=== PATIENT | female | born 1955 | race African-American/Black ===

== ENCOUNTER 2018-04-03 10:17 | Inpatient (IN) ==
[2018-04-03] MEDS ORDERED: SODIUM CHLORIDE 0.9% 1,000 ML IV STA (10:33)
[2018-04-03 11:46] LABS: Basophils % 0.2 % (0.0-0.8); Hematocrit 39.8 VOL% (35.7-47.0); Hemoglobin 12.9 GM/DL (12.0-16.0); Immature Granulocytes % 0.5 %; Immature Granulocytes Absolute 0.09 #; Lymphocytes # 1.9 10*3/uL (1.4-4.0); Lymphocytes % 10.3 % (21.3-54.2); Mean Corpuscular HGB Conc 32.4 GM/DL (32-36); Mean Corpuscular Hemoglobin 30 PG (27-34); Mean Corpuscular Volume 92.6 FL (87-102); Mean Platelet Volume 9.5 FL (9.6-12.0); Monocytes # 1.1 10*3/uL (0.11-0.8); Monocytes % 5.7 % (1.7-12.7); Neutrophils # 15.5 10*3/uL (1.4-7.4); Neutrophils % 83.3 % (38.7-73.9); Platelet Count 495 T/CUMM (130-400); Red Cell Distribution Width 14.6 % (9.3-17.3); White Blood Count 18.6 T/CUMM (4-12)
[2018-04-03 11:54] LABS: PT Patient Result 10.1 SECS
[2018-04-03 12:09] LABS: Apearance,Urine Clear (Clear); Bilirubin,Urine Negative (Negative); Blood, Urine Negative (Negative); Glucose,Urine (UA) Negative (Negative); Ketones,Urine 25 mg/dL (Negative); Nitrite,Urine Negative (Negative); Protein,Urine Negative; Urine Color Yellow (Yellow); Urine Specific Gravity 1.015 (1.001-1.035); Urine Urobilinogen 0.2 EU/DL (0.2-1.0)
[2018-04-03 12:12] LABS: Albumin 3.1 G/DL (3.4-5.0); Bilirubin,Total 0.4 MG/DL (0.2-1.0); Calcium 9.2 MG/DL (8.5-10.1); Total Protein 8.4 G/DL (6.4-8.3)
[2018-04-03 12:13] LABS: Osmolality,Calculated 319.1 MOS/KG (273-304); Potassium 4.3 MMOL/L (3.5-5.1)
[2018-04-03 12:21] LABS: Barbiturates Screen,Urine Negative (Negative); Benzodiazepines Screen,Urine Negative (Negative); Cannabinoid Screen,Urine Positive (Negative); Opiate Screen,Urine Negative (Negative); Phencyclidine Screen,Urine Negative (Negative)
[2018-04-03] MEDS ORDERED: ONDANSETRON 4 MG/2 ML VIAL IV PRN (13:51)
[2018-04-03] MEDS ORDERED: ACETAMINOPHEN 325 MG TABLET PO PRN (13:51)
[2018-04-03] MEDS ORDERED: LABETALOL 20 MG/4 ML SYRINGE IV PRN (13:53)
[2018-04-03] MEDS ORDERED: GLUCAGON 1 MG VIAL IM PRN (13:56)
[2018-04-03] MEDS ORDERED: DEXTROSE 50% 25 GM/50 ML VIAL IV PRN (13:56)
[2018-04-03] MEDS ORDERED: hydrALAZINE 20 MG/1 ML VIAL IV PRN (13:58)
[2018-04-03 14:22] LABS: Risk Ratio 2.03; Thyroid Stimulating Hormone 0.385 uIU/ml (0.358-3.74); VLDL CHOLESTEROL 30.6 MG/DL
[2018-04-03] MEDS: cefTRIAXone 1,000 MG in SYRINGE 1 EACH IV SCH (17:26)
[2018-04-03] MEDS: SODIUM CHLORIDE 0.45% 1,000 ML IV SCH (17:27)
[2018-04-03] MEDS: ASPIRIN 325 MG TABLET PO SCH (17:27)
[2018-04-03] MEDS: INSULIN LISPRO 100 UNIT/ML SUBCUT SCH ×2 (17:28→22:04)
[2018-04-03 21:24] LABS: Apearance,Urine CLOUDY (Clear); Bilirubin,Urine Negative (Negative); Blood, Urine Moderate mg/dL (Negative); Glucose,Urine (UA) Negative (Negative); Hyaline Casts,Urine 3 /LPF (0-3); Ketones,Urine 20 mg/dL (Negative); Mucus,Urine Occasional /LPF (Occasional); Nitrite,Urine Negative (Negative); Protein,Urine 30 MG/DL; RBC,Urine 27 /HPF (0-4); Squamous Epithelial Cell,Urine Occasional /HPF (0-10); Urine Color Yellow (Yellow); Urine Specific Gravity 1.016 (1.001-1.035); Urine Urobilinogen < 2.0 EU/DL (0.2-1.0); WBC,Urine 267 /HPF (0-6)
[2018-04-03] MEDS: TOLTERODINE LA 2 MG CAPSULE PO SCH (22:00)
[2018-04-03] MEDS: ENOXAPARIN 30 MG/0.3 ML SYRINGE SUBCUT SCH (22:00)
[2018-04-03] MEDS: ROSUVASTATIN 20 MG TABLET PO SCH (22:01)
[2018-04-04] MEDS: SODIUM CHLORIDE 0.45% 1,000 ML IV SCH ×2 (04:04→11:36)
[2018-04-04 07:52] LABS: Basophils # 0.1 10*3/uL (0.0-0.2); Basophils % 0.3 % (0.0-0.8); Eosinophils # 0.1 10*3/uL (0.0-0.87); Eosinophils % 0.6 % (0.00-10.9); Hematocrit 32.5 VOL% (35.7-47.0); Immature Granulocytes % 0.3 %; Immature Granulocytes Absolute 0.04 #; Lymphocytes # 2.3 10*3/uL (1.4-4.0); Mean Corpuscular HGB Conc 32.6 GM/DL (32-36); Mean Corpuscular Hemoglobin 30 PG (27-34); Mean Corpuscular Volume 92.3 FL (87-102); Mean Platelet Volume 9.5 FL (9.6-12.0); Monocytes # 0.9 10*3/uL (0.11-0.8); Monocytes % 5.9 % (1.7-12.7); Neutrophils % 76.9 % (38.7-73.9); Platelet Count 427 T/CUMM (130-400); Red Blood Count 3.52 MC/CUMM (3.8-5.5); Red Cell Distribution Width 14.4 % (9.3-17.3); White Blood Count 14.4 T/CUMM (4-12)
[2018-04-04 07:55] LABS: Hemoglobin 10.6 GM/DL (12.0-16.0)
[2018-04-04 08:01] LABS: Calcium 9.2 MG/DL (8.5-10.1); Osmolality,Calculated 325.4 MOS/KG (273-304); Potassium 3.9 MMOL/L (3.5-5.1)
[2018-04-04] MEDS: INSULIN LISPRO 100 UNIT/ML SUBCUT SCH ×4 (10:09→20:05)
[2018-04-04] MEDS: ASPIRIN 325 MG TABLET PO SCH (10:10)
[2018-04-04] MEDS: amLODIPine 10 MG TABLET PO SCH (10:10)
[2018-04-04] MEDS: cefTRIAXone 1,000 MG in SYRINGE 1 EACH IV SCH (16:10)
[2018-04-04] MEDS: DEXTROSE 5% 1,000 ML IV SCH (16:14)
[2018-04-04] MEDS: ROSUVASTATIN 20 MG TABLET PO SCH (20:05)
[2018-04-04] MEDS: TOLTERODINE LA 2 MG CAPSULE PO SCH (20:05)
[2018-04-04] MEDS: ENOXAPARIN 30 MG/0.3 ML SYRINGE SUBCUT SCH (20:05)
[2018-04-05 06:40] LABS: Basophils % 0.3 % (0.0-0.8); Eosinophils # 0.4 10*3/uL (0.0-0.87); Eosinophils % 2.8 % (0.00-10.9); Hematocrit 31.2 VOL% (35.7-47.0); Hemoglobin 10.1 GM/DL (12.0-16.0); Immature Granulocytes % 0.5 %; Immature Granulocytes Absolute 0.07 #; Lymphocytes # 2.5 10*3/uL (1.4-4.0); Lymphocytes % 19.1 % (21.3-54.2); Mean Corpuscular HGB Conc 32.4 GM/DL (32-36); Mean Corpuscular Hemoglobin 30 PG (27-34); Mean Corpuscular Volume 91.5 FL (87-102); Mean Platelet Volume 9.5 FL (9.6-12.0); Monocytes # 0.7 10*3/uL (0.11-0.8); Monocytes % 5.5 % (1.7-12.7); Neutrophils # 9.5 10*3/uL (1.4-7.4); Neutrophils % 71.8 % (38.7-73.9); Platelet Count 395 T/CUMM (130-400); Red Blood Count 3.41 MC/CUMM (3.8-5.5); White Blood Count 13.2 T/CUMM (4-12)
[2018-04-05 06:56] LABS: Calcium 8.6 MG/DL (8.5-10.1); Osmolality,Calculated 296.8 MOS/KG (273-304); Potassium 3.9 MMOL/L (3.5-5.1)
[2018-04-05] MEDS: INSULIN LISPRO 100 UNIT/ML SUBCUT SCH ×4 (09:02→20:24)
[2018-04-05] MEDS: amLODIPine 10 MG TABLET PO SCH (09:03)
[2018-04-05] MEDS: ASPIRIN 325 MG TABLET PO SCH (09:03)
[2018-04-05] MEDS: cefTRIAXone 1,000 MG in SYRINGE 1 EACH IV SCH (15:01)
[2018-04-05] MEDS: DEXTROSE 5% 1,000 ML IV SCH (19:57)
[2018-04-05] MEDS: ROSUVASTATIN 20 MG TABLET PO SCH (20:06)
[2018-04-05] MEDS: TOLTERODINE LA 2 MG CAPSULE PO SCH (20:06)
[2018-04-05] MEDS: levETIRAcetam 500 MG TABLET PO SCH (20:06)
[2018-04-05] MEDS: ENOXAPARIN 30 MG/0.3 ML SYRINGE SUBCUT SCH (20:08)
[2018-04-06] MEDS: DEXTROSE 5% 1,000 ML IV SCH ×2 (01:33→11:53)
[2018-04-06 06:35] LABS: Basophils # 0.1 10*3/uL (0.0-0.2); Basophils % 0.4 % (0.0-0.8); Eosinophils # 0.3 10*3/uL (0.0-0.87); Eosinophils % 2.2 % (0.00-10.9); Hematocrit 32.1 VOL% (35.7-47.0); Hemoglobin 10.5 GM/DL (12.0-16.0); Immature Granulocytes % 0.5 %; Immature Granulocytes Absolute 0.07 #; Lymphocytes # 2.4 10*3/uL (1.4-4.0); Lymphocytes % 16.4 % (21.3-54.2); Mean Corpuscular HGB Conc 32.7 GM/DL (32-36); Mean Corpuscular Hemoglobin 30 PG (27-34); Mean Corpuscular Volume 90.4 FL (87-102); Mean Platelet Volume 10.1 FL (9.6-12.0); Monocytes # 0.9 10*3/uL (0.11-0.8); Monocytes % 6.3 % (1.7-12.7); Neutrophils # 10.7 10*3/uL (1.4-7.4); Neutrophils % 74.2 % (38.7-73.9); Platelet Count 428 T/CUMM (130-400); Red Blood Count 3.55 MC/CUMM (3.8-5.5); Red Cell Distribution Width 13.5 % (9.3-17.3); White Blood Count 14.5 T/CUMM (4-12)
[2018-04-06 06:35] LABS: Calcium 8.9 MG/DL (8.5-10.1); Osmolality,Calculated 294.8 MOS/KG (273-304); Potassium 3.9 MMOL/L (3.5-5.1)
[2018-04-06] MEDS ORDERED: LIDOCAINE 1%/EPI INJ 20 ML VIAL ONE (08:15)
[2018-04-06] MEDS ORDERED: BUPIVACAINE 0.25% /EPI 10 ML VIAL ONE (08:15)
[2018-04-06] MEDS ORDERED: ONDANSETRON 4 MG/2 ML VIAL ONE (09:42)
[2018-04-06] MEDS ORDERED: SEVOFLURANE 1 UNIT/15 MINUTE INH ONE (09:42)
[2018-04-06] MEDS ORDERED: PROPOFOL 200 MG/20 ML VIAL IV ONE (09:42)
[2018-04-06] MEDS ORDERED: fentaNYL 100 MCG/2 ML VIAL ONE (09:42)
[2018-04-06] MEDS ORDERED: PHENYLEPHRINE 1 MG/10 ML SYRINGE IV ONE (09:43)
[2018-04-06] MEDS: INSULIN LISPRO 100 UNIT/ML SUBCUT SCH ×4 (10:23→22:03)
[2018-04-06] MEDS: levETIRAcetam 500 MG TABLET PO SCH ×2 (11:13→20:39)
[2018-04-06] MEDS: amLODIPine 10 MG TABLET PO SCH (11:13)
[2018-04-06] MEDS: PANTOPRAZOLE 40 MG VIAL IV SCH (11:13)
[2018-04-06] MEDS ORDERED: TUBERCULIN SKIN TEST 0.1 ML SYRINGE INTRADERM ONE (14:31)
[2018-04-06 15:33] LABS: Glucose,CSF 117 MG/DL (40-70)
[2018-04-06] MEDS: cefTRIAXone 1,000 MG in SYRINGE 1 EACH IV SCH (16:22)
[2018-04-06 16:42] LABS: Lymphocytes,CSF 80 %; Monocytes,CSF 20 %; Red Blood Cell,CSF 3 C/CUMM; White Blood Cell,CSF 3 C/CUMM
[2018-04-06 16:43] LABS: Appearance,CSF Clear
[2018-04-06] MEDS: ROSUVASTATIN 20 MG TABLET PO SCH (20:38)
[2018-04-06] MEDS: TOLTERODINE LA 2 MG CAPSULE PO SCH (20:39)
[2018-04-07] MEDS: DEXTROSE 5% 1,000 ML IV SCH ×3 (00:31→14:28)
[2018-04-07 06:36] LABS: Basophils # 0.1 10*3/uL (0.0-0.2); Basophils % 0.5 % (0.0-0.8); Eosinophils # 0.3 10*3/uL (0.0-0.87); Eosinophils % 2.1 % (0.00-10.9); Hematocrit 29.3 VOL% (35.7-47.0); Hemoglobin 9.5 GM/DL (12.0-16.0); Immature Granulocytes % 0.6 %; Immature Granulocytes Absolute 0.08 #; Lymphocytes # 3.3 10*3/uL (1.4-4.0); Lymphocytes % 22.8 % (21.3-54.2); Mean Corpuscular HGB Conc 32.4 GM/DL (32-36); Mean Corpuscular Hemoglobin 29 PG (27-34); Mean Corpuscular Volume 90.2 FL (87-102); Mean Platelet Volume 9.6 FL (9.6-12.0); Monocytes % 6.6 % (1.7-12.7); Neutrophils # 9.7 10*3/uL (1.4-7.4); Neutrophils % 67.4 % (38.7-73.9); Platelet Count 399 T/CUMM (130-400); Red Blood Count 3.25 MC/CUMM (3.8-5.5); Red Cell Distribution Width 13.2 % (9.3-17.3); White Blood Count 14.4 T/CUMM (4-12)
[2018-04-07 07:06] LABS: Calcium 8.6 MG/DL (8.5-10.1); Potassium 3.8 MMOL/L (3.5-5.1)
[2018-04-07] MEDS: amLODIPine 10 MG TABLET PO SCH (08:15)
[2018-04-07] MEDS: levETIRAcetam 500 MG TABLET PO SCH ×2 (08:15→22:23)
[2018-04-07] MEDS: INSULIN LISPRO 100 UNIT/ML SUBCUT SCH ×4 (08:16→22:23)
[2018-04-07] MEDS: PANTOPRAZOLE 40 MG VIAL IV SCH (08:16)
[2018-04-07] MEDS ORDERED: POLYETHYLENE GLYCOL POWDER 17 GM PACK PO PRN (11:13)
[2018-04-07] MEDS: COLLAGENASE OINT 30 GM TUBE TOP SCH (11:54)
[2018-04-07 13:45] LABS: VDRL Spinal Fluid Negative (Negative)
[2018-04-07] MEDS: cefTRIAXone 1,000 MG in SYRINGE 1 EACH IV SCH (15:43)
[2018-04-07] MEDS ORDERED: ZIPRASIDONE 20 MG/1 ML VIAL IM ONE (17:10)
[2018-04-07] MEDS: TOLTERODINE LA 2 MG CAPSULE PO SCH (22:23)
[2018-04-07] MEDS: ROSUVASTATIN 20 MG TABLET PO SCH (22:23)
[2018-04-08 05:27] LABS: Basophils # 0.1 10*3/uL (0.0-0.2); Basophils % 0.5 % (0.0-0.8); Eosinophils # 0.2 10*3/uL (0.0-0.87); Eosinophils % 1.7 % (0.00-10.9); Hematocrit 29.3 VOL% (35.7-47.0); Hemoglobin 9.5 GM/DL (12.0-16.0); Immature Granulocytes % 0.4 %; Immature Granulocytes Absolute 0.05 #; Lymphocytes # 2.3 10*3/uL (1.4-4.0); Lymphocytes % 18.2 % (21.3-54.2); Mean Corpuscular HGB Conc 32.4 GM/DL (32-36); Mean Corpuscular Hemoglobin 30 PG (27-34); Mean Corpuscular Volume 91.8 FL (87-102); Mean Platelet Volume 9.3 FL (9.6-12.0); Monocytes # 0.9 10*3/uL (0.11-0.8); Monocytes % 7.2 % (1.7-12.7); Neutrophils # 9.1 10*3/uL (1.4-7.4); Platelet Count 395 T/CUMM (130-400); Red Blood Count 3.19 MC/CUMM (3.8-5.5); Red Cell Distribution Width 13.1 % (9.3-17.3); White Blood Count 12.6 T/CUMM (4-12)
[2018-04-08 05:49] LABS: Calcium 8.7 MG/DL (8.5-10.1); Osmolality,Calculated 283.3 MOS/KG (273-304)
[2018-04-08] MEDS ORDERED: MAGNESIUM SULF RIDER 4 GM in PREMIX 1 EACH IV PRN (08:18)
[2018-04-08] MEDS: levETIRAcetam 500 MG TABLET PO SCH ×2 (08:59→21:59)
[2018-04-08] MEDS: PANTOPRAZOLE 40 MG VIAL IV SCH (08:59)
[2018-04-08] MEDS: amLODIPine 10 MG TABLET PO SCH (09:00)
[2018-04-08] MEDS: INSULIN LISPRO 100 UNIT/ML SUBCUT SCH ×4 (09:00→22:02)
[2018-04-08] MEDS: DEXTROSE 5% 1,000 ML IV SCH ×3 (09:01→21:59)
[2018-04-08] MEDS: COLLAGENASE OINT 30 GM TUBE TOP SCH (09:02)
[2018-04-08] MEDS: MAGNESIUM SULF RIDER 2 GM in PREMIX 1 EACH IV PRN (09:08)
[2018-04-08] MEDS: VANCOMYCIN INJ 1,000 MG in SODIUM CHLORIDE 0.9% 250 ML IV SCH (12:01)
[2018-04-08] MEDS: TOLTERODINE LA 2 MG CAPSULE PO SCH (21:59)
[2018-04-08] MEDS: ROSUVASTATIN 20 MG TABLET PO SCH (21:59)
[2018-04-09] MEDS: VANCOMYCIN INJ 1,000 MG in SODIUM CHLORIDE 0.9% 250 ML IV SCH ×2 (00:20→12:07)
[2018-04-09 07:18] LABS: Basophils # 0.1 10*3/uL (0.0-0.2); Basophils % 0.6 % (0.0-0.8); Eosinophils # 0.2 10*3/uL (0.0-0.87); Eosinophils % 1.9 % (0.00-10.9); Hematocrit 27.1 VOL% (35.7-47.0); Hemoglobin 8.7 GM/DL (12.0-16.0); Immature Granulocytes % 0.4 %; Immature Granulocytes Absolute 0.05 #; Lymphocytes # 2.4 10*3/uL (1.4-4.0); Lymphocytes % 19.4 % (21.3-54.2); Mean Corpuscular HGB Conc 32.1 GM/DL (32-36); Mean Corpuscular Hemoglobin 30 PG (27-34); Mean Corpuscular Volume 92.2 FL (87-102); Mean Platelet Volume 9.5 FL (9.6-12.0); Monocytes # 0.9 10*3/uL (0.11-0.8); Monocytes % 7.5 % (1.7-12.7); Neutrophils # 8.7 10*3/uL (1.4-7.4); Neutrophils % 70.2 % (38.7-73.9); Platelet Count 415 T/CUMM (130-400); Red Blood Count 2.94 MC/CUMM (3.8-5.5); Red Cell Distribution Width 13.2 % (9.3-17.3); White Blood Count 12.5 T/CUMM (4-12)
[2018-04-09 07:35] LABS: Calcium 8.5 MG/DL (8.5-10.1); Osmolality,Calculated 284.1 MOS/KG (273-304); Potassium 3.8 MMOL/L (3.5-5.1)
[2018-04-09] MEDS ORDERED: SODIUM HYPOCHLORITE 0.25% IRRIG 473 ML BOTTLE TOP ONE (08:13)
[2018-04-09] MEDS: INSULIN LISPRO 100 UNIT/ML SUBCUT SCH ×4 (08:35→21:05)
[2018-04-09] MEDS: DEXTROSE 5% 1,000 ML IV SCH ×2 (08:36→21:03)
[2018-04-09] MEDS: COLLAGENASE OINT 30 GM TUBE TOP SCH (08:36)
[2018-04-09] MEDS: amLODIPine 10 MG TABLET PO SCH (08:43)
[2018-04-09] MEDS: PANTOPRAZOLE 40 MG VIAL IV SCH (09:18)
[2018-04-09] MEDS: levETIRAcetam 500 MG TABLET PO SCH ×2 (09:18→21:04)
[2018-04-09] MEDS ORDERED: LACTATED RINGERS 1,000 ML IV SCH (13:30)
[2018-04-09] MEDS ORDERED: PROPOFOL 200 MG/20 ML VIAL IV ONE (14:41)
[2018-04-09] MEDS ORDERED: fentaNYL 100 MCG/2 ML VIAL ONE (14:42)
[2018-04-09] MEDS ORDERED: DEXAMETHASONE 10 MG/1 ML VIAL ONE (14:42)
[2018-04-09] MEDS ORDERED: SEVOFLURANE 1 UNIT/15 MINUTE INH ONE (14:42)
[2018-04-09] MEDS ORDERED: ONDANSETRON 4 MG/2 ML VIAL ONE (14:42)
[2018-04-09] MEDS ORDERED: ETOMIDATE 40 MG/20 ML VIAL IV ONE (14:42)
[2018-04-09] MEDS ORDERED: PHENYLEPHRINE 1 MG/10 ML SYRINGE IV ONE (14:43)
[2018-04-09] MEDS: TOLTERODINE LA 2 MG CAPSULE PO SCH (21:04)
[2018-04-09] MEDS: ROSUVASTATIN 20 MG TABLET PO SCH (21:04)
[2018-04-10] MEDS: VANCOMYCIN INJ 1,000 MG in SODIUM CHLORIDE 0.9% 250 ML IV SCH ×3 (00:22→23:37)
[2018-04-10 07:35] LABS: Basophils % 0.1 % (0.0-0.8); Hematocrit 26.2 VOL% (35.7-47.0); Hemoglobin 8.7 GM/DL (12.0-16.0); Immature Granulocytes % 0.7 %; Immature Granulocytes Absolute 0.13 #; Lymphocytes # 1.4 10*3/uL (1.4-4.0); Lymphocytes % 7.2 % (21.3-54.2); Mean Corpuscular HGB Conc 33.2 GM/DL (32-36); Mean Corpuscular Hemoglobin 30 PG (27-34); Mean Corpuscular Volume 89.1 FL (87-102); Mean Platelet Volume 9.8 FL (9.6-12.0); Monocytes # 0.5 10*3/uL (0.11-0.8); Monocytes % 2.7 % (1.7-12.7); Neutrophils # 16.7 10*3/uL (1.4-7.4); Neutrophils % 89.3 % (38.7-73.9); Platelet Count 499 T/CUMM (130-400); Red Blood Count 2.94 MC/CUMM (3.8-5.5); Red Cell Distribution Width 12.9 % (9.3-17.3); White Blood Count 18.7 T/CUMM (4-12)
[2018-04-10 08:10] LABS: Calcium 8.6 MG/DL (8.5-10.1); Osmolality,Calculated 284.3 MOS/KG (273-304); Potassium 4.2 MMOL/L (3.5-5.1)
[2018-04-10] MEDS: amLODIPine 10 MG TABLET PO SCH (09:33)
[2018-04-10] MEDS: levETIRAcetam 500 MG TABLET PO SCH ×2 (09:33→20:08)
[2018-04-10] MEDS: ASPIRIN 325 MG TABLET PO SCH (09:33)
[2018-04-10] MEDS: PANTOPRAZOLE 40 MG VIAL IV SCH (09:33)
[2018-04-10] MEDS: INSULIN LISPRO 100 UNIT/ML SUBCUT SCH ×4 (09:34→20:11)
[2018-04-10] MEDS: DEXTROSE 5% 1,000 ML IV SCH (09:57)
[2018-04-10] MEDS: COLLAGENASE OINT 30 GM TUBE TOP SCH (15:52)
[2018-04-10] MEDS: MAGNESIUM SULF RIDER 2 GM in PREMIX 1 EACH IV PRN (16:12)
[2018-04-10] MEDS ORDERED: ZIPRASIDONE 20 MG/1 ML VIAL IM ONE (19:51)
[2018-04-10] MEDS: TOLTERODINE LA 2 MG CAPSULE PO SCH (20:08)
[2018-04-10] MEDS: ROSUVASTATIN 20 MG TABLET PO SCH (20:08)
[2018-04-10] MEDS: ENOXAPARIN 30 MG/0.3 ML SYRINGE SUBCUT SCH (20:09)
[2018-04-11 05:46] LABS: Basophils % 0.2 % (0.0-0.8); Eosinophils % 0.2 % (0.00-10.9); Hemoglobin 7.9 GM/DL (12.0-16.0); Immature Granulocytes % 0.5 %; Immature Granulocytes Absolute 0.08 #; Lymphocytes # 2.9 10*3/uL (1.4-4.0); Lymphocytes % 17.8 % (21.3-54.2); Mean Corpuscular HGB Conc 32.9 GM/DL (32-36); Mean Corpuscular Hemoglobin 29 PG (27-34); Mean Corpuscular Volume 87.9 FL (87-102); Monocytes # 1.2 10*3/uL (0.11-0.8); Monocytes % 7.4 % (1.7-12.7); Neutrophils # 12.1 10*3/uL (1.4-7.4); Neutrophils % 73.9 % (38.7-73.9); Platelet Count 482 T/CUMM (130-400); Red Blood Count 2.73 MC/CUMM (3.8-5.5); Red Cell Distribution Width 13.1 % (9.3-17.3); White Blood Count 16.3 T/CUMM (4-12)
[2018-04-11 06:29] LABS: Calcium 8.4 MG/DL (8.5-10.1); Osmolality,Calculated 288.7 MOS/KG (273-304); Potassium 3.7 MMOL/L (3.5-5.1)
[2018-04-11] MEDS: levETIRAcetam 500 MG TABLET PO SCH ×2 (10:38→22:15)
[2018-04-11] MEDS: ASPIRIN 325 MG TABLET PO SCH (10:38)
[2018-04-11] MEDS: amLODIPine 10 MG TABLET PO SCH (10:38)
[2018-04-11] MEDS: INSULIN LISPRO 100 UNIT/ML SUBCUT SCH ×4 (10:38→22:19)
[2018-04-11] MEDS: PANTOPRAZOLE 40 MG TABLET PO SCH (10:38)
[2018-04-11] MEDS ORDERED: VANCOMYCIN INJ 1,000 MG in SODIUM CHLORIDE 0.9% 250 ML IV SCH (21:00)
[2018-04-11] MEDS: ENOXAPARIN 30 MG/0.3 ML SYRINGE SUBCUT SCH (22:15)
[2018-04-11] MEDS: ROSUVASTATIN 20 MG TABLET PO SCH (22:15)
[2018-04-11] MEDS: TOLTERODINE LA 2 MG CAPSULE PO SCH (22:15)
[2018-04-12 07:01] LABS: Basophils % 0.3 % (0.0-0.8); Eosinophils # 0.2 10*3/uL (0.0-0.87); Eosinophils % 1.7 % (0.00-10.9); Hematocrit 24.9 VOL% (35.7-47.0); Hemoglobin 8.1 GM/DL (12.0-16.0); Immature Granulocytes % 0.4 %; Immature Granulocytes Absolute 0.05 #; Lymphocytes # 2.7 10*3/uL (1.4-4.0); Lymphocytes % 23.2 % (21.3-54.2); Mean Corpuscular HGB Conc 32.5 GM/DL (32-36); Mean Corpuscular Hemoglobin 29 PG (27-34); Mean Corpuscular Volume 88.9 FL (87-102); Mean Platelet Volume 9.3 FL (9.6-12.0); Monocytes # 1.1 10*3/uL (0.11-0.8); Monocytes % 9.4 % (1.7-12.7); NRBC # 0.02 10*3/uL; Neutrophils # 7.6 10*3/uL (1.4-7.4); Platelet Count 521 T/CUMM (130-400); Red Cell Distribution Width 13.2 % (9.3-17.3); White Blood Count 11.6 T/CUMM (4-12)
[2018-04-12 07:21] LABS: Calcium 8.7 MG/DL (8.5-10.1); Osmolality,Calculated 287.7 MOS/KG (273-304); Potassium 3.7 MMOL/L (3.5-5.1)
[2018-04-12] MEDS: INSULIN LISPRO 100 UNIT/ML SUBCUT SCH ×4 (09:05→22:33)
[2018-04-12] MEDS: levETIRAcetam 500 MG TABLET PO SCH ×2 (09:05→20:18)
[2018-04-12] MEDS: amLODIPine 10 MG TABLET PO SCH (09:05)
[2018-04-12] MEDS: PANTOPRAZOLE 40 MG TABLET PO SCH (09:05)
[2018-04-12] MEDS: ASPIRIN 325 MG TABLET PO SCH (09:05)
[2018-04-12] MEDS: MAGNESIUM SULF RIDER 2 GM in PREMIX 1 EACH IV PRN (09:06)
[2018-04-12] MEDS ORDERED: SKIN HEALING OINT (AQUAPHOR) 50 GM TUBE TOP PRN (15:23)
[2018-04-12] MEDS: ENOXAPARIN 30 MG/0.3 ML SYRINGE SUBCUT SCH (20:18)
[2018-04-12] MEDS: TOLTERODINE LA 2 MG CAPSULE PO SCH (20:18)
[2018-04-12] MEDS: ROSUVASTATIN 20 MG TABLET PO SCH (20:18)
[2018-04-13] MEDS: ASPIRIN 325 MG TABLET PO SCH (09:00)
[2018-04-13] MEDS: PANTOPRAZOLE 40 MG TABLET PO SCH (09:00)
[2018-04-13] MEDS: amLODIPine 10 MG TABLET PO SCH (09:00)
[2018-04-13] MEDS: levETIRAcetam 500 MG TABLET PO SCH ×2 (09:00→21:00)
[2018-04-13] MEDS: INSULIN LISPRO 100 UNIT/ML SUBCUT SCH ×4 (10:05→21:00)
[2018-04-13] MEDS: ROSUVASTATIN 20 MG TABLET PO SCH (20:59)
[2018-04-13] MEDS: TOLTERODINE LA 2 MG CAPSULE PO SCH (21:00)
[2018-04-13] MEDS: ENOXAPARIN 30 MG/0.3 ML SYRINGE SUBCUT SCH (21:00)
[2018-04-14] MEDS: INSULIN LISPRO 100 UNIT/ML SUBCUT SCH ×4 (09:30→23:11)
[2018-04-14] MEDS: ASPIRIN 325 MG TABLET PO SCH (09:31)
[2018-04-14] MEDS: levETIRAcetam 500 MG TABLET PO SCH ×2 (09:31→20:36)
[2018-04-14] MEDS: PANTOPRAZOLE 40 MG TABLET PO SCH (09:31)
[2018-04-14] MEDS: amLODIPine 10 MG TABLET PO SCH (09:31)
[2018-04-14] MEDS: ROSUVASTATIN 20 MG TABLET PO SCH (20:35)
[2018-04-14] MEDS: TOLTERODINE LA 2 MG CAPSULE PO SCH (20:36)
[2018-04-14] MEDS: ENOXAPARIN 30 MG/0.3 ML SYRINGE SUBCUT SCH (20:36)
[2018-04-15] MEDS: INSULIN LISPRO 100 UNIT/ML SUBCUT SCH ×4 (08:44→20:57)
[2018-04-15] MEDS: PANTOPRAZOLE 40 MG TABLET PO SCH (08:44)
[2018-04-15] MEDS: amLODIPine 10 MG TABLET PO SCH (08:44)
[2018-04-15] MEDS: levETIRAcetam 500 MG TABLET PO SCH ×2 (08:44→20:57)
[2018-04-15] MEDS: ASPIRIN 325 MG TABLET PO SCH (08:44)
[2018-04-15] MEDS: ENOXAPARIN 30 MG/0.3 ML SYRINGE SUBCUT SCH (20:57)
[2018-04-15] MEDS: ROSUVASTATIN 20 MG TABLET PO SCH (20:57)
[2018-04-15] MEDS: TOLTERODINE LA 2 MG CAPSULE PO SCH (20:57)
[2018-04-16] MEDS: INSULIN LISPRO 100 UNIT/ML SUBCUT SCH ×4 (09:16→21:07)
[2018-04-16] MEDS: amLODIPine 10 MG TABLET PO SCH (09:17)
[2018-04-16] MEDS: ASPIRIN 325 MG TABLET PO SCH (09:19)
[2018-04-16] MEDS: levETIRAcetam 500 MG TABLET PO SCH ×2 (09:19→21:08)
[2018-04-16] MEDS: PANTOPRAZOLE 40 MG TABLET PO SCH (09:19)
[2018-04-16] MEDS: ENOXAPARIN 30 MG/0.3 ML SYRINGE SUBCUT SCH (21:07)
[2018-04-16] MEDS: ROSUVASTATIN 20 MG TABLET PO SCH (21:07)
[2018-04-16] MEDS: TOLTERODINE LA 2 MG CAPSULE PO SCH (21:08)
[2018-04-17 05:14] LABS: Basophils # 0.1 10*3/uL (0.0-0.2); Basophils % 0.4 % (0.0-0.8); Eosinophils # 0.1 10*3/uL (0.0-0.87); Eosinophils % 1.1 % (0.00-10.9); Hematocrit 23.5 VOL% (35.7-47.0); Hemoglobin 7.5 GM/DL (12.0-16.0); Immature Granulocytes % 0.5 %; Immature Granulocytes Absolute 0.06 #; Lymphocytes # 3.8 10*3/uL (1.4-4.0); Mean Corpuscular HGB Conc 31.9 GM/DL (32-36); Mean Corpuscular Hemoglobin 29 PG (27-34); Mean Corpuscular Volume 89.7 FL (87-102); Mean Platelet Volume 8.8 FL (9.6-12.0); Monocytes # 0.8 10*3/uL (0.11-0.8); Monocytes % 6.5 % (1.7-12.7); Neutrophils # 7.4 10*3/uL (1.4-7.4); Neutrophils % 60.5 % (38.7-73.9); Platelet Count 599 T/CUMM (130-400); Red Blood Count 2.62 MC/CUMM (3.8-5.5); Red Cell Distribution Width 13.5 % (9.3-17.3); White Blood Count 12.2 T/CUMM (4-12)
[2018-04-17 05:37] LABS: Calcium 8.8 MG/DL (8.5-10.1); Osmolality,Calculated 284.8 MOS/KG (273-304); Potassium 3.9 MMOL/L (3.5-5.1)
[2018-04-17] MEDS: INSULIN LISPRO 100 UNIT/ML SUBCUT SCH ×4 (09:07→21:35)
[2018-04-17] MEDS: levETIRAcetam 500 MG TABLET PO SCH ×2 (09:07→21:35)
[2018-04-17] MEDS: PANTOPRAZOLE 40 MG TABLET PO SCH (09:08)
[2018-04-17] MEDS: ASPIRIN 325 MG TABLET PO SCH (09:08)
[2018-04-17] MEDS: amLODIPine 10 MG TABLET PO SCH (09:08)
[2018-04-17] MEDS ORDERED: MAGNESIUM OXIDE 400 MG TABLET PO ONE (10:13)
[2018-04-17 11:27] LABS: % Iron Saturation 8.5 % (18-50); Ferritin 58.9 ng/ml (8-252)
[2018-04-17] MEDS: TAMSULOSIN 0.4 MG CAPSULE PO SCH (13:33)
[2018-04-17 16:36] LABS: Apearance,Urine Slightly Hazy (Clear); Bacteria,Urine Occasional /HPF (Few); Bilirubin,Urine Negative (Negative); Blood, Urine Negative (Negative); Glucose,Urine (UA) Negative (Negative); Ketones,Urine 5 mg/dL (Negative); Mucus,Urine Occasional /LPF (Occasional); Nitrite,Urine Negative (Negative); Protein,Urine Negative; RBC,Urine 1 /HPF (0-4); Squamous Epithelial Cell,Urine Occasional /HPF (0-10); Urine Color Yellow (Yellow); Urine Specific Gravity 1.019 (1.001-1.035); WBC,Urine 7 /HPF (0-6)
[2018-04-17] MEDS: ROSUVASTATIN 20 MG TABLET PO SCH (21:34)
[2018-04-17] MEDS: TOLTERODINE LA 2 MG CAPSULE PO SCH (21:35)
[2018-04-18 06:05] LABS: Basophils # 0.1 10*3/uL (0.0-0.2); Basophils % 0.5 % (0.0-0.8); Eosinophils # 0.2 10*3/uL (0.0-0.87); Eosinophils % 1.4 % (0.00-10.9); Hematocrit 26.6 VOL% (35.7-47.0); Hemoglobin 8.6 GM/DL (12.0-16.0); Immature Granulocytes % 0.4 %; Immature Granulocytes Absolute 0.05 #; Lymphocytes % 25.9 % (21.3-54.2); Mean Corpuscular HGB Conc 32.3 GM/DL (32-36); Mean Corpuscular Hemoglobin 29 PG (27-34); Mean Platelet Volume 8.6 FL (9.6-12.0); Monocytes # 0.9 10*3/uL (0.11-0.8); Monocytes % 7.2 % (1.7-12.7); Neutrophils # 7.6 10*3/uL (1.4-7.4); Neutrophils % 64.6 % (38.7-73.9); Platelet Count 591 T/CUMM (130-400); Red Blood Count 2.99 MC/CUMM (3.8-5.5); Red Cell Distribution Width 13.3 % (9.3-17.3); White Blood Count 11.7 T/CUMM (4-12)
[2018-04-18 06:34] LABS: Osmolality,Calculated 282.3 MOS/KG (273-304); Potassium 3.7 MMOL/L (3.5-5.1)
[2018-04-18] MEDS: INSULIN LISPRO 100 UNIT/ML SUBCUT SCH ×4 (07:50→22:55)
[2018-04-18] MEDS: levETIRAcetam 500 MG TABLET PO SCH ×2 (08:58→22:55)
[2018-04-18] MEDS: TAMSULOSIN 0.4 MG CAPSULE PO SCH (08:58)
[2018-04-18] MEDS: PANTOPRAZOLE 40 MG TABLET PO SCH ×3 (08:59→22:56)
[2018-04-18] MEDS: amLODIPine 10 MG TABLET PO SCH (08:59)
[2018-04-18] MEDS ORDERED: PROPOFOL 200 MG/20 ML VIAL IV ONE (11:07)
[2018-04-18] MEDS ORDERED: LIDOCAINE 100 MG/5 ML SYRINGE ONE (11:07)
[2018-04-18] MEDS ORDERED: MAGNESIUM SULF RIDER 100 ML IV ONE (15:18)
[2018-04-18] MEDS ORDERED: SODIUM PHOSPHATE ENEMA 133 ML BOTTLE RECTAL ONE (17:27)
[2018-04-18] MEDS ORDERED: MAGNESIUM SULF RIDER 4 GM in PREMIX 1 EACH IV ONE (18:00)
[2018-04-18] MEDS: ROSUVASTATIN 20 MG TABLET PO SCH (22:55)
[2018-04-18] MEDS: TOLTERODINE LA 2 MG CAPSULE PO SCH (22:55)
[2018-04-19] MEDS: PANTOPRAZOLE 40 MG TABLET PO SCH (08:48)
[2018-04-19] MEDS: levETIRAcetam 500 MG TABLET PO SCH (08:48)
[2018-04-19] MEDS: amLODIPine 10 MG TABLET PO SCH (08:48)
[2018-04-19] MEDS: TAMSULOSIN 0.4 MG CAPSULE PO SCH (08:49)
[2018-04-19] MEDS: INSULIN LISPRO 100 UNIT/ML SUBCUT SCH (08:49)
[2018-04-19 10:53] LABS: Hematocrit 28.4 VOL% (35.7-47.0); Hemoglobin 8.9 GM/DL (12.0-16.0)
[2018-04-19 13:11] VITALS: BP 106/67
== END 2018-04-19 14:29 | disposition swing bed (61) | DRG 40 ==
LOC: N.ED 10:17 → SUATTDRO 12:23 → N.EDINP 12:23 → N.2W 13:45 → N.5E 15:56
PROVIDERS: ADMIT Internal Medicine; ATTEND Internal Medicine